=== PATIENT | male | born 1985 | race African-American/Black ===

== ENCOUNTER 2020-09-06 17:19 | Inpatient (IN) ==
[2020-09-06 18:11] LABS: Basophils # 0.1 10*3/uL (0.0-0.2); Basophils % 0.5 % (0.0-0.8); Eosinophils % 0.1 % (0.00-10.9); Hematocrit 36.7 VOL% (42.0-52.0); Hemoglobin 11.7 GM/DL (14.0-18.0); Immature Granulocytes % 0.3 %; Immature Granulocytes Absolute 0.03 #; Lymphocytes % 9.5 % (21.2-54.2); Mean Corpuscular HGB Conc 31.9 GM/DL (32-36); Mean Platelet Volume 9.7 FL (9.6-12.0); Monocytes % 9.4 % (1.7-12.7); Neutrophils % 80.2 % (38.7-73.9); Platelet Count 206 T/CUMM (130-400); Red Blood Count 4.53 MC/CUMM (3.8-5.5); Red Cell Distribution Width 14.7 % (9.3-17.3); White Blood Count 10.6 T/CUMM (4-12)
[2020-09-06] MEDS ORDERED: HALOPERIDOL 5 MG/ML AMP ONE (18:22)
[2020-09-06] MEDS ORDERED: LORazepam 2 MG/1 ML VIAL ONE (18:22)
[2020-09-06 18:28] LABS: Barbiturates Screen,Urine Negative (Negative); Benzodiazepines Screen,Urine Positive (Negative); Cannabinoid Screen,Urine Positive (Negative); Opiate Screen,Urine Negative (Negative); Phencyclidine Screen,Urine Negative (Negative)
[2020-09-06 18:34] LABS: Albumin 4.4 G/DL (3.4-5.0); Bilirubin,Total 0.5 MG/DL (0.2-1.0); Calcium 8.9 MG/DL (8.5-10.1); Osmolality,Calculated 280.5 MOS/KG (273-304); Potassium 3.8 MMOL/L (3.5-5.1); Total Protein 8.5 G/DL (6.4-8.3)
[2020-09-06] MEDS ORDERED: HALOPERIDOL 5 MG/ML AMP IM STA (18:34)
[2020-09-06] MEDS ORDERED: LORazepam 2 MG/1 ML VIAL IM STA (18:34)
[2020-09-06] MEDS ORDERED: diphenhydrAMINE 50 MG/1 ML VIAL IM STA (18:46)
[2020-09-06] MEDS ORDERED: diphenhydrAMINE 50 MG/1 ML VIAL ONE (18:47)
[2020-09-06] MEDS ORDERED: ALBUTEROL 2.5 MG/3 ML NEB RESP TX PRN (19:15)
[2020-09-06] MEDS ORDERED: ONDANSETRON 4 MG/2 ML VIAL IM PRN (19:15)
[2020-09-06] MEDS ORDERED: HALOPERIDOL 5 MG/ML AMP IM PRN (19:18)
[2020-09-06] MEDS ORDERED: LORazepam 2 MG/1 ML VIAL IM PRN (19:18)
[2020-09-06 22:06] LABS: Bilirubin,Urine Negative (Negative); Blood, Urine Negative (Negative); Glucose,Urine (UA) Negative (Negative); Hyaline Casts,Urine 3 /LPF (0-3); Ketones,Urine 20 mg/dL (Negative); Mucus,Urine Few /LPF (Occasional); Nitrite,Urine Negative (Negative); Protein,Urine 100 MG/DL; RBC,Urine 5 /HPF (0-4); Squamous Epithelial Cell,Urine Occasional /HPF (0-10); Urine Appearance CLEAR (Clear); Urine Color Yellow (Yellow); Urine Specific Gravity 1.028 (1.001-1.035); Urine Urobilinogen < 2.0 EU/DL (0.2-1.0); WBC,Urine 3 /HPF (0-6)
[2020-09-07] MEDS: cloNIDine 0.1 MG TABLET PO SCH ×2 (02:32→02:33)
[2020-09-07 04:00] LABS: Basophils # 0.1 10*3/uL (0.0-0.2); Basophils % 0.6 % (0.0-0.8); Eosinophils # 0.1 10*3/uL (0.0-0.87); Eosinophils % 1.5 % (0.00-10.9); Hemoglobin 11.1 GM/DL (14.0-18.0); Immature Granulocytes % 0.3 %; Immature Granulocytes Absolute 0.03 #; Lymphocytes # 2.3 10*3/uL (1.4-4.0); Mean Corpuscular HGB Conc 30.8 GM/DL (32-36); Mean Platelet Volume 10.1 FL (9.6-12.0); Monocytes % 10.5 % (1.7-12.7); Neutrophils % 63.1 % (38.7-73.9); Platelet Count 207 T/CUMM (130-400); Red Blood Count 4.39 MC/CUMM (3.8-5.5); Red Cell Distribution Width 14.7 % (9.3-17.3); White Blood Count 9.6 T/CUMM (4-12)
[2020-09-07 05:09] LABS: Albumin 4.2 G/DL (3.4-5.0); Bilirubin,Total 0.7 MG/DL (0.2-1.0); Calcium 8.8 MG/DL (8.5-10.1); Osmolality,Calculated 275.7 MOS/KG (273-304); Potassium 3.9 MMOL/L (3.5-5.1); Total Protein 7.9 G/DL (6.4-8.3)
[2020-09-07] MEDS ORDERED: PANTOPRAZOLE 40 MG TABLET PO SCH (09:00)
[2020-09-07 12:17] VITALS: BP 119/69
[2020-09-08] MEDS ORDERED: BICTEGRAV EMTRICIT TENOFOV ALA PO SCH (09:00)
== END 2020-09-07 12:05 | disposition home or self-care (01) | DRG 917 ==
LOC: N.ED 17:19 → N.EDINP 19:00 → SUATTDRO 19:00 → N.EDINP 09-07 12:12
PROVIDERS: ADMIT Internal Medicine; ATTEND Internal Medicine